=== PATIENT | male | born 1945 | race Caucasian/White ===

== ENCOUNTER → 2019-05-30 | Outpatient (CLI) | payer MEDICARE | END | disposition home or self-care (01) | LOC: LAB SHORT 13:15 → LAB 13:15 | DX: R30.0 Dysuria (principal) | CPT/HCPCS: 87077; 87086; 87186 ==

== ENCOUNTER → 2019-07-05 | Outpatient (CLI) | payer MEDICARE | END | disposition home or self-care (01) | LOC: LAB 14:30 → LAB SHORT 14:30 | DX: N39.0 Urinary tract infection, site not specified (principal) | CPT/HCPCS: 87086 ==

== ENCOUNTER 2020-01-10 13:44 | Inpatient (IN) | payer MEDICARE ==
[~2020-01-10] VITALS: Ht 180.3 cm; Wt 76.0 kg
[2020-01-10 14:32] LABS: BASOPHILS ABSOLUTE AUTO 0.06 K/mm3 (0.00-0.23); BASOPHILS PERCENT AUTO 1 % (0-2); EOSINOPHILS ABSOLUTE AUTO 0.11 K/mm3 (0.00-0.68); EOSINOPHILS PERCENT AUTO 1 % (0-6); Hemoglobin 15.8 g/dL (13.5-17.5); IMMATURE GRAN ABSOLUTE AUTO 0.04 K/mm3 (0.00-0.10); IMMATURE GRAN PERCENT AUTO 1 % (0-1); LYMPHOCYTES ABSOLUTE AUTO 2.89 K/mm3 (0.84-5.20); LYMPHOCYTES PERCENT AUTO 34 % (21-46); MONOCYTES ABSOLUTE AUTO 0.66 K/mm3 (0.16-1.47); MONOCYTES PERCENT AUTO 8 % (4-13); Mean Corpuscular HGB 32.4 pg (26.0-34.0); Mean Corpuscular HGB Conc 32.9 g/dL (31.5-36.5); Mean Corpuscular Volume 98 fL (80-100); Mean Platelet Volume 9.1 fL (9.1-12.4); NEUTROPHILS PERCENT AUTO 56 % (41-73); Platelet Count 283 K/mm3 (150-400); RDW Coefficient Variation 12.2 % (11.7-14.2); RDW Standard Deviation 44.6 fL (35.1-46.3); Red Blood Cell Count 4.88 M/mm3 (4.30-5.90); White Blood Cell Count 8.46 K/mm3 (4.00-11.30)
[2020-01-10 14:52] LABS: Alanine Aminotransfer (ALT/SGP 33 U/L (12-78); Albumin/Globulin Ratio 1.1 (0.8-1.8); Alk Phos 64 U/L (50-136); Anion Gap 7 mmol/L (6-16); Aspartate Aminotrans (AST/SGOT 28 U/L (12-37); Bilirubin, Total 0.6 mg/dL (0.1-1.0); Blood Urea Nitrogen 16 mg/dL (8-24); Bun/Creatinine Ratio 18.8 (12.0-20.0); CO2, Blood 28 mmol/L (21-32); Calcium, Blood 8.9 mg/dL (8.5-10.1); Chloride, Blood 107 mmol/L (98-108); Creatinine, Blood 0.85 mg/dL (0.60-1.20); Globulin, Blood 3.8 g/dL (2.2-4.0); Glomerular Filtration Rate >60 (60-); Glucose, Blood 161 mg/dL (70-99); Potassium, Blood 3.7 mmol/L (3.5-5.5); Sodium, Blood 142 mmol/L (136-145); Total Protein, Blood 7.8 g/dL (6.4-8.2); Troponin I <0.015 ng/mL (0.000-0.040)
[2020-01-10] MEDS ORDERED: ATOR80 PO (16:23)
[2020-01-10] MEDS ORDERED: OMEP20ER PO (16:23)
[2020-01-10] MEDS ORDERED: ASPI81CH PO (16:24)
[2020-01-10] MEDS ORDERED: LOSA50 PO (16:24)
[2020-01-10] MEDS ORDERED: LATANOPROST2.5 M1 BOTHEYES (16:25)
--- NOTE | 2020-01-10 21:58 | NUR ---
ADMIT PATIENT ARRIVED TO ICU RM. 15 01/09 @ 20:35. TRANSFERRED EASILY TO BED, PLACED IN APPROPRIATE ATTIRE AND ON MONITORING EQUIPMENT. / CHEST PAIN NOTED AT END OF ADMIT QUESTIONAIRE, RESOLVING WITH REST. AM ATTEMPTING TO CLARIFY WITH DOSAGE OF ORDERED [place], PATIENT STATES HE TAKES 1/2 PILL B.I.D. TO EQUAL 1 TOTAL TABLET EACH DAY, UNCERTAIN OF DOSAGE. WILL CLARIFY WHEN CALLS BACK. VSS. ASSESSMENT IS CHARTED. WILL CONTINUE TO MONITOR.
[2020-01-11 00:01] LABS: International Normalized Ratio 1.06; Prothrombin Time Results 11.3 Sec (9.7-11.5)
--- NOTE | 2020-01-11 04:53 | NUR ---
SHIFT SUMMARY PATIENT HAD A ROUGH NIGHT. AT 00:27, PATIENT C/O 7/10 CRUSHING CHEST PAIN, NO MEDS AVAILABLE. IMMEDIATELY PAGED DR. COLIN, WHOM GAVE ME ORDER FOR NITRO DRIP AFTER IT WAS INITIALLY DISCONTINUED. TITRATED IT UP TO ITS CURRENT RATE OF 40 MCG/MIN, PAIN NOW RESOLVED. STATES INTERMITENTLY WILL RISE TO 2/10, BUT THEN GOES AWAY AFTER A COUPLE OF MINUTES, ALMOST SPASTIC-LIKE. WHEN IN FULL FORCE, PAIN IS ABOUT 2 CM MEDIAL OF THE LEFT NIPPLE, FEELING LIKE "AN ELEPHANT IS PRESSING ON MY CHEST, AND IT RADIATES ALL THE WAY TO MY BACK." EARLIER PATIENT STATED HE FELT LIKE HIS RIGHT LEG WAS "IN A TUB OF ICE," LEG WAS NOTED TO BE COOLER THAN LEFT, HOWEVER IMPROVED AFTER STARTING THE NITRO DRIP. HAS BEEN MAINTAINED ON NPO STATUS SINCE MIDNIGHT, SAVE FOR 1 DOSE OF TYLENOL FOR A HEADACHE GIVEN AROUND 02:30. CARDIOLOGY CONSULT CALLED TO [facility], PATIENT WILL SEE DR. SMITH IN AM. ASSESSMENT IS CHARTED. VSS. NO C/O PAIN AT THIS TIME. WILL CONTINUE TO MONITOR.
[2020-01-11 06:06] LABS: BASOPHILS ABSOLUTE AUTO 0.05 K/mm3 (0.00-0.23); BASOPHILS PERCENT AUTO 1 % (0-2); EOSINOPHILS ABSOLUTE AUTO 0.13 K/mm3 (0.00-0.68); EOSINOPHILS PERCENT AUTO 1 % (0-6); Hematocrit 42.4 % (37.0-53.0); IMMATURE GRAN ABSOLUTE AUTO 0.07 K/mm3 (0.00-0.10); IMMATURE GRAN PERCENT AUTO 1 % (0-1); LYMPHOCYTES ABSOLUTE AUTO 2.15 K/mm3 (0.84-5.20); LYMPHOCYTES PERCENT AUTO 23 % (21-46); MONOCYTES ABSOLUTE AUTO 0.71 K/mm3 (0.16-1.47); MONOCYTES PERCENT AUTO 8 % (4-13); Mean Corpuscular HGB 32.3 pg (26.0-34.0); Mean Corpuscular Volume 98 fL (80-100); Mean Platelet Volume 9.2 fL (9.1-12.4); NEUTROPHILS ABSOLUTE AUTO 6.41 K/mm3 (1.96-9.15); NEUTROPHILS PERCENT AUTO 67 % (41-73); Platelet Count 224 K/mm3 (150-400); RDW Coefficient Variation 12.3 % (11.7-14.2); RDW Standard Deviation 44.4 fL (35.1-46.3); Red Blood Cell Count 4.34 M/mm3 (4.30-5.90); White Blood Cell Count 9.52 K/mm3 (4.00-11.30)
[2020-01-11 06:21] LABS: Anion Gap 3 mmol/L (6-16); Blood Urea Nitrogen 13 mg/dL (8-24); Bun/Creatinine Ratio 21.2 (12.0-20.0); CO2, Blood 26 mmol/L (21-32); Calcium, Blood 8.2 mg/dL (8.5-10.1); Chloride, Blood 111 mmol/L (98-108); Creatinine, Blood 0.61 mg/dL (0.60-1.20); Glomerular Filtration Rate >60 (60-); Glucose, Blood 116 mg/dL (70-99); Potassium, Blood 3.5 mmol/L (3.5-5.5); Sodium, Blood 140 mmol/L (136-145)
--- NOTE | 2020-01-11 07:00 | NUR ---
BEGINNING OF SHIFT Assumed care at 0700. Bedside report received from [place] SHEN. Pt A&O x 4. Denies chest pain. Denies headache. Currently receiving nitroglycerin drip at 40 mcg/min. Plan to titrate down. Sinus bradycardia per monitor. Pt NPO at this time. Bed in lowest position. Call light in reach. Pt denies need.
--- NOTE | 2020-01-11 08:15 | NUR ---
DR SMITH IN TO SEE PT Notified provider that pt is still on nitroglycerin drip. Provider states plan for coronary angiogram. Provider states heparin may be stopped as groin approach may be used. Provider states he would like echocardiogram obtained prior to pt going to cathode maker. Echocardiogram explosive technician, Shaggy, at bedside at this time.
--- NOTE | 2020-01-11 09:57 | NUR ---
Echocardiogram performed.
--- NOTE | 2020-01-11 10:36 | NUR ---
NITRO DRIP Attempted to titrate down to 20 mcg/min. Pt stated his chest pain was starting to come back. Increased back up to 30 mcg/min. Pt states he is feeling "a little sore", but denies chest pressure.
--- NOTE | 2020-01-11 11:52 | NUR ---
NITRO DRIP Increased to 40 mcg/min. Pt states his chest is "sore but not pounding". Will continue to reassess.
--- NOTE | 2020-01-11 15:30 | NUR ---
PT TO OPERATOR PREFINISH Nitro patch and nitro drip remain in place.
--- NOTE | 2020-01-11 18:27 | NUR ---
SUMMARY Pt back to room from label remover at 1800. Pt arrived with right TR site. Per report, 12 mL air in band. Color, sensation, pulses, capillary refill equal BUE. Per report from label remover, no intervention performed today. Plan for pt to go back to label remover for intervention Thursday/Thursday. This RN provided update to pt's spouse, Shanna. Heparin drip and nitro drip discontinued by label remover staff. Pt denies chest pain upon arrival to unit. Per Dr Tsang, pt to continue on heparin drip when TR band is off. Will continue to closely monitor until care handoff and bedside report with oncoming RN.
--- NOTE | 2020-01-11 19:29 | NUR ---
ATTEMPTED TO OBTAIN ANGIOGRAM IMAGES FROM [facility] Per Dr Tsang request. Instructed to call File Room at [phone] between hours of 7 am and 4:30 pm. construction flaggerMariza and NOC [place] SHEN aware of this task to be completed on 01/12/2020.
[2020-01-12 03:45] LABS: Mean Platelet Volume 9.5 fL (9.1-12.4); Platelet Count 234 K/mm3 (150-400)
--- NOTE | 2020-01-12 04:43 | NUR ---
SHIFT SUMMARY PATIENT SLEPT WELL THROUGH THE NIGHT. ABSOLUTELY NO C/O CHEST PAIN. TR BAND WAS FULLY DEFLATED BY 23:00 LAST NIGHT, REMOVED AT MIDNIGHT. I RESTARTED THE HEPARIN DRIP @ 00:00, CALLED PHARMACY TO INFORM, WHO ORDERED FOLLOW-UP PTT @ 08:00. VSS. ASSESSMENT IS CHARTED. WILL CONTINUE TO MONITOR.
[2020-01-12 07:19] LABS: Anion Gap 6 mmol/L (6-16); Blood Urea Nitrogen 11 mg/dL (8-24); Bun/Creatinine Ratio 14.5 (12.0-20.0); CO2, Blood 25 mmol/L (21-32); Calcium, Blood 8.3 mg/dL (8.5-10.1); Chloride, Blood 110 mmol/L (98-108); Creatinine, Blood 0.76 mg/dL (0.60-1.20); Glomerular Filtration Rate >60 (60-); Glucose, Blood 94 mg/dL (70-99); Potassium, Blood 3.6 mmol/L (3.5-5.5); Sodium, Blood 141 mmol/L (136-145)
--- NOTE | 2020-01-12 08:39 | NUR ---
ASSUMED CARE: REPORT RECEIVED FROM HERMELINDA ARELLANO. PT RESTING IN BED, ALERT AND ORIENTED, DENIES ANY CHEST PAIN, NITRO PASTE ON R CHEST AND HEPARIN DRIP INFUSING. NO REQUESTS FROM PT AT THIS TIME. CONTINUING TO MONITOR.
[2020-01-12] MEDS ORDERED: OMEP20ER PO (10:22)
--- NOTE | 2020-01-12 13:24 | NUR ---
REASSESSMENT: PT CONTINUES TO REST IN BED OR IN THE CHAIR. DENIES CHEST PAIN. DR. CARREON GAVE OK FOR PT TO HAVE HIS OMEPRAZOLE AND TO TRANSFER TO PCU, SEE ORDERS. HEPARIN ADJUSTED PER PHARMACY. CONTINUING TO MONITOR.
--- NOTE | 2020-01-12 14:17 | NUR ---
TRANSFER: PT TRANSFERRED TO [facility] VIA WC WITH RN. REPORT GIVEN TO HERMELINDA HARPER. ALL BELONGINGS TRANSFERRED WITH PT. PT TOLERATED TRANSFER WELL.
--- NOTE | 2020-01-12 18:20 | NUR ---
SHIFT NOTE PT SENT FROM ICU, 2 DAYS POST ANGIO THAT WAS NOT SUCCESSFUL PT WAS AT MAXIMUM DOSE OF CONTRAST DYE, PT WILL RETURN FOR REPEAT ANGIO 01/14/2020. PT IS RESTING WELL IN BED, NADN, DENIES CP OR SOB. SKIN PWD AND INTACT. PT WITH CLEAR LS T/O WITH WITH MURMUR NOTED.
--- NOTE | 2020-01-12 18:39 | NUR ---
HEPARIN IS TITRATED TO 14UNIT/HR FROM 13UNITS/HR PER LATEST ORDER POST PTT
--- NOTE | 2020-01-13 05:26 | NUR ---
SHIFT SUMMARY PT SLEEPING IN ROOM COMFORTABLY AT THIS TIME. NO ACUTE CHANGES IN STATUS T/O NIGHT. PT SLEPT WELL. DENIED ANY CP OR SOB. RESP EVEN UNLABORED ON RA W/ SATS >92%. PT REMAINED IN NSR T/O NIGHT. HEPARIN GTT INFSUING IN PIV AT 14/U/KG/HR PER PHARMACY. PT DENIED OTHER NEEDS T/O NIGHT AND IS INDEPENDENT IN ROOM. CALL LIGHT IN REACH.
--- NOTE | 2020-01-13 07:51 | NUR ---
HEPARIN AND NITRO ARE D/C BY DR SMITH THIS AM, NITRO PASTE IS REMOVED AND HERPARIN IS STOPPED. IV IS FLUSHED. PT UP TO BEDSIDE CHAIR, AMBULATED TO BATHROOM WITH EVEN STEADY GAIT
[2020-01-13] MEDS ORDERED: Isosorbide Mono30 MG PO (16:30)
--- NOTE | 2020-01-13 17:13 | NUR ---
PT D/C HOME WITH APOINTMENT WITH PCP AND DR SMITH. PT EXPRESSED UNDERSTANDING OF DC TEACHING AND DENIES FURTHER NEEDS
== END 2020-01-13 16:58 | disposition home or self-care (01) | DRG 287 ==
LOC: ER 13:44 → ICUW 13:45 → PCU 01-12 14:05
PROVIDERS: Internal Medicine Cardiovascular Disease; Nurse Practitioner Acute Care; Physician Assistant; ADMIT Internal Medicine
PROC: 4A023N7 Measurement of Cardiac Sampling and Pressure, Left Heart, Percutaneous Approach (ICD-10-PCS; principal; 2020-01-11)
PROC: B2111ZZ Fluoroscopy of Multiple Coronary Arteries using Low Osmolar Contrast (ICD-10-PCS; 2020-01-11)
DX: I25.110 Atherosclerotic heart disease of native coronary artery with unstable angina pectoris (principal); E78.5 Hyperlipidemia, unspecified; I35.0 Nonrheumatic aortic (valve) stenosis; I51.7 Cardiomegaly; I11.9 Hypertensive heart disease without heart failure; K21.9 Gastro-esophageal reflux disease without esophagitis; R91.1 Solitary pulmonary nodule
CPT/HCPCS: 36415; 71046; 71275; 74175; 80048; 80053; 83690; 83880; 84484; 85025; 85049; 85347; 85610; 85730; 93005; 93010; 93306; 93454; 93571; 99152; 99153; 99285-25; A9270; A9270-GY; C1769; C1887; C1894; J0360; J1644; J2250; J3010; J3480; J7030; Q9967

== ENCOUNTER 2020-04-25 06:04 | Day surgery (SDC) | payer MEDICARE ==
[~2020-04-25] VITALS: Ht 180.3 cm; Wt 74.8 kg
[~2020-04-25 06:04] MED LIST: ASPI81CH PO; ATOR80 PO; CLOP75 PO; Isosorbide Mono30 MG PO; LATANOPROST2.5 M1 BOTHEYES; LOSA50 PO; OMEP20ER PO
--- NOTE | 2020-04-25 06:42 | NUR ---
History, Chart, Medications and Allergies reviewed before start of procedure. Lungs clear T/O to Auscultation. Patient confirms NPO status and agrees with scheduled surgery. Pre-Op teaching done. Pt verbalizes understanding. Patient States Post-Procedure ride home has been arranged. Patient reports completing Chlorhexadine shower X2 prior to admission to hospital.
--- NOTE | 2020-04-25 09:08 | NUR ---
04/25/20 0908 Tamara Cortes ALL COUNTS CORRECT
--- NOTE | 2020-04-25 09:55 | NUR ---
PT'S VSS. TOLERATING APPLE JUICE. DENIES ANY FOOD AT THIS TIME. NO C/O PAIN OR NAUSEA. HAS BEEN CALLED AND UPDATED.
--- NOTE | 2020-04-25 10:54 | NUR ---
Patient up to Ambulate independently. Gait steady. Discharge instructions reviewed with patient. Patient verbalizes understanding. Copy given to patient to take home. Discharged via wheelchair to private car for ride home.
== END 2020-04-25 22:42 | disposition home or self-care (01) ==
LOC: ORSCMMR 06:04 → ORD 07:30 → ORSCMMR 22:42
PROVIDERS: Surgery
PROC: 0YU60JZ Supplement Left Inguinal Region with Synthetic Substitute, Open Approach (ICD-10-PCS; principal; 2020-04-25 07:30)
DX: K40.91 Unilateral inguinal hernia, without obstruction or gangrene, recurrent (principal); I10 Essential (primary) hypertension; K21.9 Gastro-esophageal reflux disease without esophagitis; Z79.899 Other long term (current) drug therapy; Z79.82 Long term (current) use of aspirin
CPT/HCPCS: C1781; J0330; J2250; J2704; J3010; J7120

== ENCOUNTER 2021-09-19 06:49 | Day surgery (SDC) | payer MEDICARE ==
[~2021-09-19] VITALS: Ht 180.3 cm; Wt 74.0 kg
[2021-09-19] MEDS ORDERED: NITR.4SL SL (07:17)
--- NOTE | 2021-09-19 13:33 | NUR ---
PT TO RECOVERY ROOM VIA RJAIDEN AT 1315. SEE FLOWSHEET. DENIRE CHEST PAIN. IV TO SALINE LOC.
--- NOTE | 2021-09-19 14:46 | NUR ---
DR. ESPAÑA HERE TO DISCUSS RESULTS WITH PATIENT.
--- NOTE | 2021-09-19 16:22 | NUR ---
KRISTINE LOYA RN ASSUMED CARE OF PATIENT. REPORT GIVEN. SITE VISUALIZED.
--- NOTE | 2021-09-19 16:38 | NUR ---
PT UP TO BATHROOM, HERE. R GROIN SITE STABLE WITHOUT HEMATOMA. PT DRESSEED PER SELF.
--- NOTE | 2021-09-19 16:54 | NUR ---
DISCHARGE INSTRUCTIONS GONE OVER WITH AND WITH PT, BOTH VERBALZIE UNDERSTANDING OF INSTRUCTIONS. R GROIN SITE REMAINS STABLE. SALINE LOCK REMOVED WITH CATHETER INTACT. PT TO PRIVATE VEHICLE PER W/C WITH ONE STAFF.
== END 2021-09-19 17:00 | disposition home or self-care (01) ==
LOC: MHTC 06:49
DX: I35.0 Nonrheumatic aortic (valve) stenosis (principal); I25.118 Atherosclerotic heart disease of native coronary artery with other forms of angina pectoris; I10 Essential (primary) hypertension; E78.5 Hyperlipidemia, unspecified
CPT/HCPCS: 76937; 93457; 99152; C1769; C1894; J1644; J2250; J3010; J7030; J7050; Q9967

== ENCOUNTER 2021-11-01 08:29 | Emergency (ER) | payer MEDICARE ==
[~2021-11-01] VITALS: Ht 172.7 cm; Wt 74.8 kg
[~2021-11-01 08:29] MED LIST changes: +NITR.4SL SL
[2021-11-01] MEDS ORDERED: TIMDOROPSO BOTHEYES (09:00)
[2021-11-01 09:28] LABS: BASOPHILS ABSOLUTE AUTO 0.06 K/mm3 (0.00-0.23); BASOPHILS PERCENT AUTO 1 % (0-2); EOSINOPHILS ABSOLUTE AUTO 0.14 K/mm3 (0.00-0.68); EOSINOPHILS PERCENT AUTO 2 % (0-6); Hematocrit 39.1 % (37.0-53.0); Hemoglobin 11.8 g/dL (13.5-17.5); IMMATURE GRAN ABSOLUTE AUTO 0.07 K/mm3 (0.00-0.10); IMMATURE GRAN PERCENT AUTO 1 % (0-1); LYMPHOCYTES ABSOLUTE AUTO 1.96 K/mm3 (0.84-5.20); LYMPHOCYTES PERCENT AUTO 21 % (21-46); MONOCYTES ABSOLUTE AUTO 0.73 K/mm3 (0.16-1.47); MONOCYTES PERCENT AUTO 8 % (4-13); Mean Corpuscular HGB 24.2 pg (26.0-34.0); Mean Corpuscular HGB Conc 30.2 g/dL (31.5-36.5); Mean Corpuscular Volume 80 fL (80-100); Mean Platelet Volume 9.4 fL (9.1-12.4); NEUTROPHILS ABSOLUTE AUTO 6.36 K/mm3 (1.96-9.15); NEUTROPHILS PERCENT AUTO 68 % (41-73); Platelet Count 319 K/mm3 (150-400); RDW Coefficient Variation 17.9 % (11.7-14.2); RDW Standard Deviation 51.4 fL (35.1-46.3); Red Blood Cell Count 4.88 M/mm3 (4.30-5.90); White Blood Cell Count 9.32 K/mm3 (4.00-11.30)
[2021-11-01 09:52] LABS: Alanine Aminotransfer (ALT/SGP 40 U/L (12-78); Albumin, Blood 3.5 g/dL (3.4-5.0); Albumin/Globulin Ratio 0.8 (0.8-1.8); Alk Phos 90 U/L (50-136); Anion Gap 6 mmol/L (6-16); Aspartate Aminotrans (AST/SGOT 37 U/L (12-37); Bilirubin, Total 0.5 mg/dL (0.1-1.0); Blood Urea Nitrogen 14 mg/dL (8-24); Bun/Creatinine Ratio 17.1 (12.0-20.0); CO2, Blood 25 mmol/L (21-32); Calcium, Blood 9.2 mg/dL (8.5-10.1); Chloride, Blood 109 mmol/L (98-108); Creatinine, Blood 0.82 mg/dL (0.60-1.20); Globulin, Blood 4.4 g/dL (2.2-4.0); Glomerular Filtration Rate >60 (60-); Glucose, Blood 134 mg/dL (70-99); Potassium, Blood 4.4 mmol/L (3.5-5.5); Sodium, Blood 140 mmol/L (136-145); Total Protein, Blood 7.9 g/dL (6.4-8.2); Troponin I 0.017 ng/mL (0.000-0.040)
[2021-11-01] MEDS ORDERED: KLOR-CON M1010 MEQ PO (11:40)
[2021-11-01] MEDS ORDERED: Lasix20 MG PO (11:40)
== END 2021-11-01 11:49 | disposition home or self-care (01) ==
LOC: ER 08:29
PROVIDERS: Physician Assistant
DX: I11.0 Hypertensive heart disease with heart failure (principal); I50.9 Heart failure, unspecified; E78.5 Hyperlipidemia, unspecified; I25.10 Atherosclerotic heart disease of native coronary artery without angina pectoris; Z87.891 Personal history of nicotine dependence; Z88.0 Allergy status to penicillin; Z88.5 Allergy status to narcotic agent; Z79.82 Long term (current) use of aspirin; Z79.899 Other long term (current) drug therapy
CPT/HCPCS: 36415; 71046; 80053; 83690; 83880; 84484; 85025; 93005; 93010; 99284-25; J1940

== ENCOUNTER 2022-01-10 02:37 | Inpatient (IN) | payer MEDICARE ==
[~2022-01-10] VITALS: Ht 180.3 cm; Wt 70.7 kg
[~2022-01-10 02:37] MED LIST changes: +KLOR-CON M1010 MEQ PO; +Lasix20 MG PO; +TIMDOROPSO BOTHEYES
[2022-01-10 03:18] LABS: BASOPHILS ABSOLUTE AUTO 0.04 K/mm3 (0.00-0.23); BASOPHILS PERCENT AUTO 1 % (0-2); EOSINOPHILS ABSOLUTE AUTO 0.02 K/mm3 (0.00-0.68); EOSINOPHILS PERCENT AUTO 0 % (0-6); Hematocrit 37.1 % (37.0-53.0); Hemoglobin 10.8 g/dL (13.5-17.5); IMMATURE GRAN ABSOLUTE AUTO 0.03 K/mm3 (0.00-0.10); IMMATURE GRAN PERCENT AUTO 0 % (0-1); LYMPHOCYTES ABSOLUTE AUTO 1.59 K/mm3 (0.84-5.20); LYMPHOCYTES PERCENT AUTO 19 % (21-46); MONOCYTES ABSOLUTE AUTO 0.71 K/mm3 (0.16-1.47); MONOCYTES PERCENT AUTO 8 % (4-13); Mean Corpuscular HGB 22.4 pg (26.0-34.0); Mean Corpuscular HGB Conc 29.1 g/dL (31.5-36.5); Mean Corpuscular Volume 77 fL (80-100); Mean Platelet Volume 9.2 fL (9.1-12.4); NEUTROPHILS ABSOLUTE AUTO 6.19 K/mm3 (1.96-9.15); NEUTROPHILS PERCENT AUTO 72 % (41-73); Platelet Count 499 K/mm3 (150-400); RDW Coefficient Variation 19.8 % (11.7-14.2); RDW Standard Deviation 54.5 fL (35.1-46.3); Red Blood Cell Count 4.83 M/mm3 (4.30-5.90); White Blood Cell Count 8.58 K/mm3 (4.00-11.30)
[2022-01-10 03:29] LABS: Alanine Aminotransfer (ALT/SGP 31 U/L (12-78); Albumin, Blood 3.8 g/dL (3.4-5.0); Albumin/Globulin Ratio 0.8 (0.8-1.8); Alk Phos 109 U/L (50-136); Anion Gap 7 mmol/L (6-16); Aspartate Aminotrans (AST/SGOT 43 U/L (12-37); Bilirubin, Total 0.7 mg/dL (0.1-1.0); Blood Urea Nitrogen 16 mg/dL (8-24); CO2, Blood 24 mmol/L (21-32); Calcium, Blood 9.1 mg/dL (8.5-10.1); Chloride, Blood 104 mmol/L (98-108); Creatinine, Blood 0.76 mg/dL (0.60-1.20); Globulin, Blood 4.8 g/dL (2.2-4.0); Glomerular Filtration Rate >60 (60-); Glucose, Blood 149 mg/dL (70-99); Potassium, Blood 4.6 mmol/L (3.5-5.5); Sodium, Blood 135 mmol/L (136-145); Total Protein, Blood 8.6 g/dL (6.4-8.2)
--- NOTE | 2022-01-10 19:21 | NUR ---
PCU ADMIT / SHIFT SUMMARY PT BROUGHT TO PCU-03 BY SIVAN FROM ER @ APPROX 1350. PT ABLE TO AMBULATE FROM [facility] TO PCU BED W/ 1 PERSON SBA. PT A&O X4. PT TABLE MOUNTAIN W/ REPORT OF BILAT HEARING AIDS AT HOME. PT VSS. SPO2 > 92% ON RA. MONITOR SHOWING SR W/ PACs, HR 60s. PT DENYING CP UPON ARRIVAL & T/O SHIFT. NOTIFIED OF INCREASED TROPONIN. W/ ORDER FOR CARDIOLOGY CONSULT. CARDIOLOGY CONSULT CALLED W/ SOUVENIR AND NOVELTY MAKER POLY FOR CONSULT IN AM.
--- NOTE | 2022-01-11 05:33 | NUR ---
SHIFT SUMMARY ASSUMED CARE OF PT AT 1900. PT IS A/OX4. HEART SOUNDS REGULAR, LUNG SOUNDS HAVE CRACKLES AT THE BASES. PT DENIES ANY PAIN. PT SLEPT T/O THE NIGHT. 1P ASSIT TO BATHROOM.
--- NOTE | 2022-01-11 08:41 | NUR ---
CARE ASSUMPTION PT A&O X4. VSS. SPO2 > 92% ON RA. MONITOR SHOWING SR W/ PVCs, HR 60s. PT DENIES CP OVER NIGHT & THIS MORNING. TAR DISTILLATION SUPERVISOR, MD HAIRSTON TO PT BEDSIDE THIS AM W/ ORDER FOR ECHO. ECHO NOW BEING DONE IN AT THIS TIME.
--- NOTE | 2022-01-11 17:30 | NUR ---
SHIFT SUMMARY PT A&O X4. VSS. SPO2 > 92% ON RA. MONITOR SHOWING SR W/ PVCs, HR 60s-80s. PT W/ REPORT OF NO CP THIS SHIFT. PT ON BEDREST, AWAITING POTENTIAL COBRA TRANSFER. WILL CONTINUE TO MONITOR & PROVIDE CARE UNTIL REPORT OFF TO LIGHTING TECHNICIAN RN.
[2022-01-12 03:38] LABS: BASOPHILS ABSOLUTE AUTO 0.05 K/mm3 (0.00-0.23); BASOPHILS PERCENT AUTO 1 % (0-2); EOSINOPHILS ABSOLUTE AUTO 0.15 K/mm3 (0.00-0.68); EOSINOPHILS PERCENT AUTO 2 % (0-6); Hematocrit 39.1 % (37.0-53.0); Hemoglobin 11.6 g/dL (13.5-17.5); IMMATURE GRAN ABSOLUTE AUTO 0.05 K/mm3 (0.00-0.10); IMMATURE GRAN PERCENT AUTO 1 % (0-1); LYMPHOCYTES ABSOLUTE AUTO 2.18 K/mm3 (0.84-5.20); LYMPHOCYTES PERCENT AUTO 28 % (21-46); MONOCYTES ABSOLUTE AUTO 1.09 K/mm3 (0.16-1.47); MONOCYTES PERCENT AUTO 14 % (4-13); Mean Corpuscular HGB 22.2 pg (26.0-34.0); Mean Corpuscular HGB Conc 29.7 g/dL (31.5-36.5); Mean Corpuscular Volume 75 fL (80-100); Mean Platelet Volume 8.8 fL (9.1-12.4); NEUTROPHILS ABSOLUTE AUTO 4.37 K/mm3 (1.96-9.15); NEUTROPHILS PERCENT AUTO 56 % (41-73); Platelet Count 452 K/mm3 (150-400); RDW Coefficient Variation 20.4 % (11.7-14.2); RDW Standard Deviation 53.1 fL (35.1-46.3); Red Blood Cell Count 5.22 M/mm3 (4.30-5.90); White Blood Cell Count 7.89 K/mm3 (4.00-11.30)
[2022-01-12 03:53] LABS: Anion Gap 8 mmol/L (6-16); Blood Urea Nitrogen 16 mg/dL (8-24); Bun/Creatinine Ratio 19.9 (12.0-20.0); CO2, Blood 27 mmol/L (21-32); Calcium, Blood 8.9 mg/dL (8.5-10.1); Chloride, Blood 103 mmol/L (98-108); Glomerular Filtration Rate >60 (60-); Glucose, Blood 122 mg/dL (70-99); Potassium, Blood 3.4 mmol/L (3.5-5.5); Sodium, Blood 138 mmol/L (136-145)
--- NOTE | 2022-01-12 06:10 | NUR ---
SHIFT SUMMARY ASSUMED CARE OF PT AT 1900. PT IS A/OX4. HEART SOUNDS REGULAR. LUNG SOUNDS CLEAR. PT REFUSED STRICT BEDREST AND WALKED TO THE BATHROOM SAYING "I FEEL FINE AND IM NOT GOING TO STAY IN BED". PT SLEPT T/O THE NIGHT WITH NO EVENTS.
[2022-01-12] MEDS ORDERED: Alphagan P5 ML BOTHEYES (17:28)
--- NOTE | 2022-01-12 18:35 | NUR ---
PT SUMMARY: NO ACUTE CHANGE FOR THE SHIFT, PT DENIES ANY CHEST PAIN, PER DR HAIRSTON PT OKAY TO USE THE BATHROOM PT TO AMBULATE VERY SLOWLY, PT GOT UP TO THE BATHROOM BATHROOM AND HAD A BM, PT TOLERATED WELL. PT STILL AWAITING FOR COBRA TRANSFER. VITALS HAS BEEN STABLE NO OTHER ISSUES REPORTED. WILL REPORT TO ONCOMING SHIFT
[2022-01-13 03:48] LABS: BASOPHILS ABSOLUTE AUTO 0.06 K/mm3 (0.00-0.23); BASOPHILS PERCENT AUTO 1 % (0-2); EOSINOPHILS ABSOLUTE AUTO 0.27 K/mm3 (0.00-0.68); EOSINOPHILS PERCENT AUTO 3 % (0-6); Hemoglobin 11.7 g/dL (13.5-17.5); IMMATURE GRAN ABSOLUTE AUTO 0.06 K/mm3 (0.00-0.10); IMMATURE GRAN PERCENT AUTO 1 % (0-1); LYMPHOCYTES ABSOLUTE AUTO 2.34 K/mm3 (0.84-5.20); LYMPHOCYTES PERCENT AUTO 26 % (21-46); MONOCYTES ABSOLUTE AUTO 1.05 K/mm3 (0.16-1.47); MONOCYTES PERCENT AUTO 12 % (4-13); Mean Corpuscular HGB 22.1 pg (26.0-34.0); Mean Corpuscular HGB Conc 29.3 g/dL (31.5-36.5); Mean Corpuscular Volume 76 fL (80-100); Mean Platelet Volume 8.9 fL (9.1-12.4); NEUTROPHILS ABSOLUTE AUTO 5.28 K/mm3 (1.96-9.15); NEUTROPHILS PERCENT AUTO 58 % (41-73); Platelet Count 448 K/mm3 (150-400); RDW Coefficient Variation 19.9 % (11.7-14.2); RDW Standard Deviation 52.9 fL (35.1-46.3); White Blood Cell Count 9.06 K/mm3 (4.00-11.30)
[2022-01-13 04:08] LABS: Anion Gap 8 mmol/L (6-16); Blood Urea Nitrogen 16 mg/dL (8-24); Bun/Creatinine Ratio 18.9 (12.0-20.0); CO2, Blood 27 mmol/L (21-32); Calcium, Blood 8.8 mg/dL (8.5-10.1); Chloride, Blood 103 mmol/L (98-108); Creatinine, Blood 0.85 mg/dL (0.60-1.20); Glomerular Filtration Rate >60 (60-); Glucose, Blood 120 mg/dL (70-99); Potassium, Blood 3.7 mmol/L (3.5-5.5); Sodium, Blood 138 mmol/L (136-145)
--- NOTE | 2022-01-13 04:59 | NUR ---
SHIFT SUMMARY NO ACUTE CHANGES THIS SHIFT. VSS. AXO. IN SR, PVC, WITH FHB. BP STABLE. PT DENYING CP/PRESSURE/SOB. MURMUR NOTICED PER AUSCULTATION. OMN RA. DIURESING WELL WITH URINAL. PT SRILL AWAITING BED PLACEMENT FOR POSSIBLE TAVR PROCEDURE. PT HAS BEEN RESTING IN ROOM QUIETEY ASLEEP. CALLED THIS RN FOR UPDATE, UPDATE GIVEN. OTHERWISE, PT USES CALL LIGHT APPROPRIATELY. BED ALARM IN PLACE BUT PT HAS NOT BEEN IUMPULSIVE.
--- NOTE | 2022-01-13 10:42 | NUR ---
GAVE REPORT TO RECIEVING HERMELINDA DYE RM 5478 CONTACT NUMBER [phone]. REPORT GIVEN, NO FURTHER QUESTIONS COMMENTS OR CONCERNS. [facility] TO ARRIVE SHORTLY WILL GET PATIENT READY. DENIES CHEST PAIN, OR SOB. NO PUMP NEEDED AT THIS TIME. DR. BENEDICT WAS THE RECIEVING DOCTOR THAT DR. DEVLIN SPOKE WITH.
--- NOTE | 2022-01-13 11:21 | NUR ---
DISHCARGE SUMMARY: REPORT HAS ALREADY BEEN GIVEN TO RECIEVING RN, [facility] ARRIVED 11:10 FOR PATIENT, TRANSFERRED FROM [facility] TO [facility], ALL BELONGINGS WITH PATIENT. PATIENT STILL DENIES CHEST PAIN, PAPERWORK GIVEN TO [facility] ICEBOX MAN. PATIENT AND TRANSPORT SERVICES HAD NO QUESTIONS COMMENTS OR CONCERNS.
== END 2022-01-13 11:19 | disposition short-term general hospital (02) | DRG 280 ==
LOC: ER 02:37 → ERHOLD 02:38 → PCU 13:47
PROVIDERS: Internal Medicine Cardiovascular Disease; Student in an Organized Health Care Education/Training Program; ADMIT Family Medicine
DX: I21.4 Non-ST elevation (NSTEMI) myocardial infarction (principal); J18.9 Pneumonia, unspecified organism; I50.33 Acute on chronic diastolic (congestive) heart failure; E87.1 Hypo-osmolality and hyponatremia; I47.1 Supraventricular tachycardia; I35.0 Nonrheumatic aortic (valve) stenosis; Z66 Do not resuscitate; Z20.822 Contact with and (suspected) exposure to COVID-19; D63.8 Anemia in other chronic diseases classified elsewhere; D75.838 Other thrombocytosis; I11.0 Hypertensive heart disease with heart failure; E87.6 Hypokalemia; I65.22 Occlusion and stenosis of left carotid artery; I25.10 Atherosclerotic heart disease of native coronary artery without angina pectoris; F10.10 Alcohol abuse, uncomplicated; E78.5 Hyperlipidemia, unspecified; Z95.1 Presence of aortocoronary bypass graft; Z85.46 Personal history of malignant neoplasm of prostate; Z90.79 Acquired absence of other genital organ(s); Z85.828 Personal history of other malignant neoplasm of skin; Z88.0 Allergy status to penicillin; Z88.5 Allergy status to narcotic agent; Z79.82 Long term (current) use of aspirin; Z79.899 Other long term (current) drug therapy
CPT/HCPCS: 36415; 71045; 80048; 80053; 83880; 84145; 84484; 85025; 93005; 93010; 93306; 96365; 96366; 96372; 96372-59; 96375; 96376; 99285-25; A9270; G0378; J1650; J1940; J1956; J7050

== ENCOUNTER → 2022-11-10 | Outpatient (CLI) | payer MEDICARE ==
[~2022-11-10] MED LIST changes: +Alphagan P5 ML BOTHEYES
== END | disposition home or self-care (01) ==
LOC: LAB SHORT 08:59 → LAB 08:59 → PLD 08:59
DX: L57.0 Actinic keratosis (principal)
CPT/HCPCS: 88305

== ENCOUNTER 2023-06-28 07:43 | Inpatient (IN) | payer MEDICARE ==
[~2023-06-28] VITALS: Ht 180.3 cm; Wt 69.0 kg
[~2023-06-28 07:43] MED LIST changes: +PANT20 PO
[2023-06-28 08:26] LABS: BASOPHILS ABSOLUTE AUTO 0.04 K/mm3 (0.00-0.23); BASOPHILS PERCENT AUTO 0 % (0-2); EOSINOPHILS ABSOLUTE AUTO 0.18 K/mm3 (0.00-0.68); EOSINOPHILS PERCENT AUTO 2 % (0-6); Hematocrit 44.5 % (37.0-53.0); Hemoglobin 15.4 g/dL (13.5-17.5); IMMATURE GRAN ABSOLUTE AUTO 0.06 K/mm3 (0.00-0.10); IMMATURE GRAN PERCENT AUTO 1 % (0-1); LYMPHOCYTES ABSOLUTE AUTO 3.22 K/mm3 (0.84-5.20); LYMPHOCYTES PERCENT AUTO 36 % (21-46); MONOCYTES PERCENT AUTO 8 % (4-13); Mean Corpuscular HGB 33.3 pg (26.0-34.0); Mean Corpuscular HGB Conc 34.6 g/dL (31.5-36.5); Mean Corpuscular Volume 96 fL (80-100); Mean Platelet Volume 9.9 fL (9.1-12.4); NEUTROPHILS ABSOLUTE AUTO 4.73 K/mm3 (1.96-9.15); NEUTROPHILS PERCENT AUTO 53 % (41-73); NRBC ABSOLUTE 0.02 K/mm3 (0.00-0.02); NRBC Auto 0.2 /100 WBC (0.0-0.2); Platelet Count 303 K/mm3 (150-400); RDW Coefficient Variation 12.8 % (11.7-14.2); RDW Standard Deviation 44.8 fL (35.1-46.3); Red Blood Cell Count 4.63 M/mm3 (4.30-5.90); White Blood Cell Count 8.93 K/mm3 (4.00-11.30)
[2023-06-28 08:38] LABS: Albumin, Blood 3.9 g/dL (3.4-5.0); Albumin/Globulin Ratio 1.1 (0.8-1.8); Bun/Creatinine Ratio 18.7 (12.0-20.0); Calcium, Blood 9.2 mg/dL (8.5-10.1); Creatinine, Blood 0.86 mg/dL (0.60-1.20); Globulin, Blood 3.5 g/dL (2.2-4.0); Potassium, Blood 4.1 mmol/L (3.5-5.5); Total Protein, Blood 7.4 g/dL (6.4-8.2)
[2023-06-28 12:47] VITALS: BP 155/76
[2023-06-28 12:50] LABS: Anti-Xa UFH, PHA Monitoring <0.10 IU/mL; International Normalized Ratio 1.04; Prothrombin Time Results 10.9 Sec (9.7-11.5)
--- NOTE | 2023-06-28 15:04 | NUR ---
CARE NOTE AT APPROX 1450 THIS NURSE WAS IN ROOM W/ PT DISCUSSING THE CONVERSATION THAT DR. HARLEY HAD W/ PT AND V-TACH WAS NOTED ON THE TELE MONITORING. PER TELE REPORT PT HAD 11 BEAT RUN OF V-TACH AND WAS ASYMPTOMATIC. DR. RAGLAND MADE AWARE BY THIS RN.
[2023-06-28 16:05] VITALS: BP 119/59
--- NOTE | 2023-06-28 17:29 | NUR ---
SHIFT SUMMARY PT IS ALERT AND ORIENTED X 4, HE HAS AMBULATED TO INDEPENDENTLY BUT HAS BEEN EDUCATED TO CALL STAFF WHEN NEEDING TO VOID DUE TO HEPARIN INFUSION/REPORTS OF DIZZINESS EARLIER TODAY. HR NOTED TO BE IN 50'S-60'S PER TELE MONITORING. PT REPORTED BASELINE HR IS BETWEEN 48-55 FOR PAST 2 YEARS. BP STABLE, SPO2 MAINTAINED >95% VIA RA. HE HAS DENIED FEELINGS OF CHEST PAIN/PRESSURE SINCE ADMISSION TO PCU, NITRO PASTE IN PLACE PER EMAR ORDERS. HE HAS ALSO DENIED FEELING SOB, LIGHTHEADED/DIZZY WELL NAUSEOUS. DURING ADMISSION, THIS RN DISCUSSED CODE STATUS W/ PT AND HE WAS UNSURE ABOUT FULL CODE MEASURES AND EXPRESSED CONCERNS REGARDING CHEST COMPRESSIONS/INTUBATION. THIS RN PLACED A PALLIATIVE CARE CONSULT WELL LEFT A MESSAGE FOR PALLIATIVE CARE FOR STAFF TO RECIEVE FRIDAY 06/29. PLEASE SEE PREVIOUS NOTE REGARDING V-TACH EPISODE. PT'S JARET WAS AT BEDSIDE EARLIER DURING SHIFT. PT IS NOW UP IN CHAIR EATING DINNER, CALL LIGHT IS W/IN REACH.
[2023-06-28 19:35] VITALS: BP 135/62
[2023-06-28 23:25] VITALS: BP 135/69
[2023-06-29 02:28] LABS: Hematocrit 46.5 % (37.0-53.0); Hemoglobin 15.7 g/dL (13.5-17.5); Mean Corpuscular HGB 33.5 pg (26.0-34.0); Mean Corpuscular HGB Conc 33.8 g/dL (31.5-36.5); Mean Corpuscular Volume 99 fL (80-100); Mean Platelet Volume 10.4 fL (9.1-12.4); NRBC ABSOLUTE 0.03 K/mm3 (0.00-0.02); NRBC Auto 0.2 /100 WBC (0.0-0.2); Platelet Count 201 K/mm3 (150-400); RDW Coefficient Variation 12.9 % (11.7-14.2); RDW Standard Deviation 46.7 fL (35.1-46.3); Red Blood Cell Count 4.68 M/mm3 (4.30-5.90); White Blood Cell Count 12.11 K/mm3 (4.00-11.30)
[2023-06-29 02:44] LABS: Bun/Creatinine Ratio 20.3 (12.0-20.0); Calcium, Blood 8.3 mg/dL (8.5-10.1); Creatinine, Blood 0.79 mg/dL (0.60-1.20)
[2023-06-29 03:05] VITALS: BP 126/66
--- NOTE | 2023-06-29 04:18 | NUR ---
SHIFT SUMMARY: Pt denies chest pain or shortness of breath. Monitor shows bradycardia with rates in the 40s-50s, initially in a 2nd degree AVB type 1, then later converted to a 1st degree block. Vitals stable, on room air. NPO after midnight for planned angiogram today.
[2023-06-29 08:29] VITALS: BP 137/66
[2023-06-29 13:47] VITALS: BP 141/65
[2023-06-29 16:34] VITALS: BP 131/67
--- NOTE | 2023-06-29 19:04 | NUR ---
Shift Summary Pt alert, oriented X4; calm and cooperative with care. Pt resting in bed, up with sba. Pt denies pain, chest pain/pressure, sob, nausea, dizziness and numb/tingling. Tele sinus anh, 40-50's, bp stable. Spo2 >90% on ra, breathing and unlabored. Abd soft nontender. Other vss. Pt to angio this afternoon, back to room with TR band to left wrist. When started deflating tr band pt started bleeding, air replaced and waited 1 hour to start pulling air out, no additional bleeding noted. Report given to oncoming rn.
[2023-06-29 19:37] VITALS: BP 131/77
[2023-06-29 23:24] VITALS: BP 147/65
--- NOTE | 2023-06-29 23:48 | NUR ---
TR BAND RECOVERY ASSUMED CARE OF PT AT 1900. ASSESSED L RADIAL SITE WITH DAYSHIFT RN DURING BEDSIDE REPORT. SITE SOFT WITH NO BRUSING, SWELLING, OR HEMATOMA. PT DENIES PAIN OR TENSDERNESS. SpO2 MONITOR ON L INDEX FINGER READING >92% ON RA. TR BAND AND ARM BOARD IN PLACE. 1934: 2mLs OF AIR REMOVED FROM TR BAND. SITE SOFT WITH NO BRUSING, SWELLING, OR HEMATOMA. PT DENIES PAIN OR TENSDERNESS. SpO2 MONITOR ON L INDEX FINGER READING >92% ON RA. TR BAND AND ARM BOARD IN PLACE. 2029: 2mLs OF AIR REMOVED FROM TR BAND. SITE SOFT WITH NO BRUSING, SWELLING, OR HEMATOMA. PT DENIES PAIN OR TENSDERNESS. SpO2 MONITOR ON L INDEX FINGER READING >92% ON RA. TR BAND AND ARM BOARD IN PLACE. 2049: 2mLs OF AIR REMOVED FROM TR BAND, NOW EMPTY. SITE SOFT WITH NO BRUSING, SWELLING, OR HEMATOMA. PT DENIES PAIN OR TENSDERNESS. SpO2 MONITOR ON L INDEX FINGER READING >92% ON RA. TR BAND AND ARM BOARD IN PLACE. 2149: TR BAND REMOVED. SITE SOFT WITH NO BRUSING, SWELLING, OR HEMATOMA. PT DENIES PAIN OR TENSDERNESS. SpO2 MONITOR ON L INDEX FINGER READING >92% ON RA. SITE CLEANED WITH CHLORHEXIDINE, SKIN PREP APPLIED, TEGADERM PLACED. ARM BOARD IN PLACE.
[2023-06-30 03:38] VITALS: BP 144/84
--- NOTE | 2023-06-30 05:09 | NUR ---
SHIFT SUMMARY SEE PREVIOUS NOTE. PT A&Ox4, CALLS AND COMMUNICATES NEEDS APPROPRIATELY. BP STABLE, SINUS w/ 1st DEGREEE BLOCK, 40-50's, DENIES CP/PRESSURE. SpO2> 92% RA, DENIES SOB. CONTINENT OF URINE, USES URINAL AT BEDSIDE WITH ASSISTANCE. NO BM THIS SHIFT. L RADIAL SITE REMAINS UNCHANGED FROM PREVIOUS NOTE, WNL, ARM BOARD IN PLACE. NO OTHER EVENTS, WILL REPORT TO ONCOMING RN.
[2023-06-30 07:14] VITALS: BP 163/74
--- NOTE | 2023-06-30 07:24 | NUR ---
Am note Patient alert, oriented X4; calm and cooperative with care. Pt resting in bed up sba/ind in room. Pt denies pain, chest pain/pressure, sob, nausea, dizziness and numb/tingling. Tele 1st degree anh, bp elevated this am. Spo2 >90% on ra, breathing even and unlabored. Abd soft, nontender. Left radial site c/d/i, no bruising noted. Other vss. No other acute changes note. Will continue to monitor.
[2023-06-30 11:20] VITALS: BP 161/78
[2023-06-30] MEDS ORDERED: CLOP75 PO (12:07)
--- NOTE | 2023-06-30 13:53 | NUR ---
Discharge Summary No acute changes noted. Pt educated on discharge instructions, follow up appointments and medications. Pt left room via wheelchair at 1255
== END 2023-06-30 12:55 | disposition home or self-care (01) | DRG 281 ==
LOC: ER 07:43 → PCU 07:44
PROVIDERS: Emergency Medicine; ADMIT Internal Medicine
PROC: 4A023N7 Measurement of Cardiac Sampling and Pressure, Left Heart, Percutaneous Approach (ICD-10-PCS; principal; 2023-06-29)
PROC: B2101ZZ Fluoroscopy of Single Coronary Artery using Low Osmolar Contrast (ICD-10-PCS; 2023-06-29)
PROC: B21F1ZZ Fluoroscopy of Other Bypass Graft using Low Osmolar Contrast (ICD-10-PCS; 2023-06-29)
PROC: B2181ZZ Fluoroscopy of Left Internal Mammary Bypass Graft using Low Osmolar Contrast (ICD-10-PCS; 2023-06-29)
DX: I21.4 Non-ST elevation (NSTEMI) myocardial infarction (principal); I50.22 Chronic systolic (congestive) heart failure; I11.0 Hypertensive heart disease with heart failure; I25.10 Atherosclerotic heart disease of native coronary artery without angina pectoris; Z66 Do not resuscitate; I24.9 Acute ischemic heart disease, unspecified; E87.6 Hypokalemia; K21.9 Gastro-esophageal reflux disease without esophagitis; I35.0 Nonrheumatic aortic (valve) stenosis; Z95.2 Presence of prosthetic heart valve; Z95.1 Presence of aortocoronary bypass graft; Z79.02 Long term (current) use of antithrombotics/antiplatelets; Z88.0 Allergy status to penicillin; Z88.5 Allergy status to narcotic agent; Z79.899 Other long term (current) drug therapy; Z79.82 Long term (current) use of aspirin; Z85.46 Personal history of malignant neoplasm of prostate; I25.2 Old myocardial infarction; Z90.79 Acquired absence of other genital organ(s); Z85.828 Personal history of other malignant neoplasm of skin; Z87.891 Personal history of nicotine dependence; Z95.5 Presence of coronary angioplasty implant and graft; Z79.01 Long term (current) use of anticoagulants
CPT/HCPCS: 36415; 71275; 76937; 80048; 80053; 84484; 85025; 85027; 85520; 85610; 85730; 93005; 93010; 93455; 96365; 96366; 96374-59; 96375-59; 99152; 99153; 99285-25; A9270; C1769; C1894; G0378; J1644; J2250; J2270; J2405; J3010; J7030; J7040; J7050; Q9967

== ENCOUNTER → 2024-03-08 | Outpatient (CLI) | payer OTHER | END | disposition home or self-care (01) | LOC: LAB 12:56 → LAB SHORT 12:56 | DX: C44.329 Squamous cell carcinoma of skin of other parts of face (principal) | CPT/HCPCS: 88305 ==

== ENCOUNTER 2025-02-13 06:27 | Emergency (ER) | payer OTHER ==
[~2025-02-13] VITALS: Ht 180.3 cm; Wt 74.8 kg
[2025-02-13 06:59] LABS: BASOPHILS ABSOLUTE AUTO 0.04 K/mm3 (0.00-0.23); BASOPHILS PERCENT AUTO 1 % (0-2); EOSINOPHILS ABSOLUTE AUTO 0.25 K/mm3 (0.00-0.68); EOSINOPHILS PERCENT AUTO 4 % (0-6); Hematocrit 38.4 % (37.0-53.0); IMMATURE GRAN ABSOLUTE AUTO 0.08 K/mm3 (0.00-0.10); IMMATURE GRAN PERCENT AUTO 1 % (0-1); LYMPHOCYTES PERCENT AUTO 27 % (21-46); MONOCYTES ABSOLUTE AUTO 0.57 K/mm3 (0.16-1.47); MONOCYTES PERCENT AUTO 8 % (4-13); Mean Corpuscular HGB 33.5 pg (26.0-34.0); Mean Corpuscular HGB Conc 33.9 g/dL (31.5-36.5); Mean Corpuscular Volume 99 fL (80-100); Mean Platelet Volume 9.8 fL (9.1-12.4); NEUTROPHILS ABSOLUTE AUTO 4.06 K/mm3 (1.96-9.15); NEUTROPHILS PERCENT AUTO 60 % (41-73); Platelet Count 305 K/mm3 (150-400); RDW Coefficient Variation 14.1 % (11.7-14.2); RDW Standard Deviation 49.8 fL (35.1-46.3); Red Blood Cell Count 3.88 M/mm3 (4.30-5.90)
[2025-02-13] MEDS ORDERED: Aspirin 325 MG Tab PO ONE (07:25)
[2025-02-13 07:26] LABS: Albumin, Blood 3.8 g/dL (3.4-5.0); Albumin/Globulin Ratio 1.1 (0.8-1.8); Bilirubin, Total 0.8 mg/dL (0.1-1.0); Bun/Creatinine Ratio 20.6 (12.0-20.0); Calcium, Blood 8.8 mg/dL (8.5-10.1); Creatinine, Blood 0.82 mg/dL (0.60-1.20); Globulin, Blood 3.5 g/dL (2.2-4.0); Potassium, Blood 4.1 mmol/L (3.5-5.5); Total Protein, Blood 7.3 g/dL (6.4-8.2)
[2025-02-13] MEDS ORDERED: Rivaroxaban 10 MG Tab PO ONE (07:55)
[2025-02-13] MEDS ORDERED: XARELTO20 MG PO (07:56)
[2025-02-13 08:28] VITALS: BP 129/84
== END 2025-02-13 08:27 | disposition home or self-care (01) ==
LOC: ER 06:27
PROVIDERS: Emergency Medicine
DX: G45.9 Transient cerebral ischemic attack, unspecified (principal); I48.91 Unspecified atrial fibrillation; I10 Essential (primary) hypertension; I25.10 Atherosclerotic heart disease of native coronary artery without angina pectoris; E78.5 Hyperlipidemia, unspecified; Z88.0 Allergy status to penicillin; Z88.5 Allergy status to narcotic agent; Z79.2 Long term (current) use of antibiotics; Z79.899 Other long term (current) drug therapy
CPT/HCPCS: 70450; 80053; 85025; 93005; 93010; 99285-25; A9270